=== PATIENT | male | born 1955 | race Caucasian/White ===

== ENCOUNTER 2019-10-04 12:41 | Emergency (ER) | payer OTHER ==
[~2019-10-04] VITALS: Ht 167.6 cm; Wt 69.4 kg
[2019-10-04] MEDS ORDERED: IV NORMAL SALINE 1,000ML 1,000 ML IV ONE (13:00)
[2019-10-04] MEDS ORDERED: ONDANSETRON PF 4 MG/2 ML VIAL. IV ONE (13:00)
[2019-10-04 13:19] LABS: BASO # 0.1 x10^3/uL (0.0-0.2); BASO % 1 % (0-3); EOS # 0.1 x10^3/uL (0.0-0.7); EOS % 1 % (0-3); HEMATOCRIT 45.5 % (39.0-53.0); HEMOGLOBIN 15.5 g/dL (13.0-17.5); LYMPH # 3.5 x10^3/uL (1.0-4.8); LYMPH % 32 % (24-48); MEAN CORPUSCULAR HEMOGLOBIN 31 pg (25-35); MEAN CORPUSCULAR HGB CONC 34 g/dL (31-37); MEAN CORPUSCULAR VOLUME 92 fL (79-100); MONO # 1.1 x10^3/uL (0.0-1.1); MONO % 10 % (0-9); NEUT # 6.1 x10^3uL (1.8-7.7); NEUT % 56 % (31-73); PLATELET COUNT 278 x10^3/uL (140-400); RED BLOOD COUNT 4.96 x10^6/uL (4.30-5.70); RED CELL DISTRIBUTION WIDTH 13.3 % (11.5-14.5); WHITE BLOOD COUNT 10.8 x10^3/uL (4.0-11.0)
[2019-10-04 13:43] LABS: ALBUMIN 3.5 g/dL (3.4-5.0); ALBUMIN/GLOBULIN RATIO 1.1 (1.0-1.7); CALCIUM 8.8 mg/dL (8.5-10.1); CREATININE 1.2 mg/dL (0.7-1.3); POTASSIUM 3.8 mmol/L (3.5-5.1); TOTAL BILIRUBIN 1.2 mg/dL (0.2-1.0); TOTAL PROTEIN 6.7 g/dL (6.4-8.2)
[2019-10-04] MEDS ORDERED: IOHEXOL 300 MG/ML 75 ML VIAL. IV ONE (14:00)
[2019-10-04] MEDS ORDERED: diphenhydrAMINE 50 MG/ML VIAL IVP ONE (14:00)
[2019-10-04] MEDS ORDERED: PROCHLORPERAZINE 10 MG/2 ML VIAL. IV ONE (14:00)
[2019-10-04] MEDS ORDERED: KETOROLAC 15 MG/ML VIAL. IVP ONE (14:00)
--- NOTE | 2019-10-04 14:27 | RAD ---
CT study of the abdomen and pelvis with contrast Clinical indications: Left lower quadrant abdominal pain. TECHNIQUE: After IV infusion of 75 cc of Omnipaque 300, helical CT scanning of the abdomen and pelvis was performed. No GI contrast was administered. This may decrease the sensitivity to detect GI tract pathology. PQRS compliance Statement One or more of the following individualized dose reduction techniques were utilized for this study: 1. Automated exposure control 2. Adjustment of the mA and/or kV according to patient size 3. Use of iterative reconstruction technique COMPARISON: None available. FINDINGS: There is a small cyst of the dome of the right lobe of the liver. Spleen is not enlarged. Pancreas and gallbladder are normal. No extra hepatic biliary ductal dilatation is seen. No adrenal mass is evident. Small nonobstructing stone of the lower pole of the right kidney is seen measuring 5 mm. Tiny punctate stone of the anterior mid aspect of the left kidney is seen. There is delayed opacification of the medullary spaces of the left kidney secondary to mild left-sided hydronephrosis. There is mild left-sided hydronephrosis and hydroureter secondary to a distal left ureteral stone measuring 5 mm in size located 1.5 cm proximal to the UVJ. There is mild left-sided perinephric inflammatory stranding. No focal aneurysmal dilatation of the abdominal aorta is seen. No enlarged abdominal or pelvic lymphadenopathy is evident. Urinary bladder is not distended. There is some hyperdensity within the lumen of urinary bladder which could represent blood. Prostate gland is mildly enlarged and indents the floor of the urinary bladder. The appendix is normal. No obstructive bowel pattern is evident. No diverticulitis is seen. No free air or free fluid or mesenteric edema is seen. No lung base consolidation is evident. No lytic process is seen. IMPRESSION: Mild left-sided hydronephrosis and hydroureter due to a distal left ureteral stone measuring 5 mm in size located 1.5 cm proximal to the UVJ. Bilateral renal stones. Mild enlargement of the prostate gland. Small amount of hyperdense blood is seen within the lumen of the urinary bladder. Electronically signed by: Mckinley Smith MD (10/04/2019 2:24 PM) [facility]
[2019-10-04 16:22] LABS: COLOR,URINE YELLOW
[2019-10-04 16:23] LABS: AMORPHOUS SEDIMENT,UR PRESENT /HPF; BACTERIA,URINE 0 /HPF (0-FEW); BILIRUBIN,URINE NEG (NEG); CLARITY,URINE CLEAR; GLUCOSE,URINE NEG (NEG); NITRITE,URINE NEG (NEG); SQUAMOUS EPITHELIAL CELL,UR OCC /LPF; UROBILINOGEN,URINE 0.2 mg/dL (0.2 mg/dL)
[2019-10-04] MEDS ORDERED: ONDA4TAB12 PO (16:35)
[2019-10-04] MEDS ORDERED: HYDR-3165 PO (16:35)
[2019-10-04 16:43] VITALS: BP 120/73
--- NOTE | 2019-10-04 16:43 | PHYS DOC ---
Past History Past Medical History: Prostatitis Past Surgical History: Other Additional Past Surgical Histo: Vasectomy Alcohol Use: None Drug Use: None Adult General Chief Complaint Chief Complaint: BACK PAIN OR INJURY HPI HPI Patient is a 64-year-old male who is presenting with chief complaint back pain onset about 2 days ago he was mildly got much worse over the last couple hours associated with suprapubic pressure unable to urinate for the last couple hours positive nausea no vomiting really no abdominal pain denies chest pain no fever symptoms are moderate slowly worsening with time denies previous medical history other than BPH for which he takes an alpha omar Review of Systems Review of Systems Constitutional: Denies fever or chills [] Eyes: Denies change in visual acuity, redness, or eye pain [] HENT: Denies nasal congestion or sore throat [] Respiratory: Denies cough or shortness of breath [] Musculoskeletal: Integument: Denies rash or skin lesions [] Neurologic: Denies headache, focal weakness or sensory changes [] Endocrine: Denies polyuria or polydipsia [] All other systems were reviewed and found to be within normal limits, except as documented in this note. Current Medications Current Medications Current Medications Medications (Trade) Dose Ordered Sig/Steve Start Time Stop Time Status Last Admin Dose Admin Diphenhydramine HCl (Benadryl) 25 mg 1X ONCE 10/04/19 14:00 10/04/19 14:01 DC 10/04/19 13:55 25 MG Fentanyl Citrate (Fentanyl 2ml Vial) 100 mcg STK-MED ONCE 10/04/19 13:01 10/04/19 13:01 DC Iohexol (Omnipaque 300 Mg/ml) 75 ml 1X ONCE 10/04/19 14:00 10/04/19 14:01 DC 10/04/19 14:07 75 ML Ketorolac Tromethamine (Toradol 15mg Vial) 15 mg 1X ONCE 10/04/19 14:00 10/04/19 14:01 DC 10/04/19 13:56 15 MG Ondansetron HCl (Zofran) 4 mg 1X ONCE 10/04/19 13:00 10/04/19 13:01 DC 10/04/19 13:00 4 MG Prochlorperazine Edisylate (Compazine) 10 mg 1X ONCE 10/04/19 14:00 10/04/19 14:01 DC 10/04/19 13:55 10 MG Sodium Chloride 1,000 ml @ 1,000 mls/hr 1X ONCE 10/04/19 13:00 10/04/19 13:59 DC 10/04/19 13:00 1,000 MLS/HR Allergies Allergies Allergies Coded Allergies Type Severity Reaction Last Updated Verified No Known Drug Allergies 10/04/19 No Physical Exam Physical Exam Constitutional: Well developed, well nourished, moderate distress appeared nauseous and was moving about the room HENT: Normocephalic, atraumatic, bilateral external ears normal, oropharynx mo ist, no oral exudates, nose normal. [] Eyes: PERRLA, EOMI, conjunctiva normal, no discharge. [] Neck: Normal range of motion, no tenderness, supple, no stridor. [] Cardiovascular:Heart rate regular rhythm, no murmur [] Lungs & Thorax: Bilateral breath sounds clear to auscultation [] Abdomen: Bowel sounds normal, soft, no tenderness, no masses, no pulsatile masses. [] Skin: Warm, dry, no erythema, no rash. [] Back: Positive CVA tenderness on the left Extremities: No tenderness, no cyanosis, no clubbing, ROM intact, no edema. [] Neurologic: Alert and oriented X 3, normal motor function, normal sensory function, no focal deficits noted. [] Psychologic: Affect normal, judgement normal, mood normal. [] Current Patient Data Vital Signs Vital Signs Date Time Temp Pulse Resp B/P (MAP) Pulse Ox O2 Delivery O2 Flow Rate FiO2 10/04/19 14:25 65 16 116/71 (86) 98 Room Air 10/04/19 12:51 98.1 Lab Results Laboratory Tests Test 10/04/19 13:03 10/04/19 15:39 White Blood Count 10.8 x10^3/uL (4.0-11.0) Red Blood Count 4.96 x10^6/uL (4.30-5.70) Hemoglobin 15.5 g/dL (13.0-17.5) Hematocrit 45.5 % (39.0-53.0) Mean Corpuscular Volume 92 fL (79-100) Mean Corpuscular Hemoglobin 31 pg (25-35) Mean Corpuscular Hemoglobin Concent 34 g/dL (31-37) Red Cell Distribution Width 13.3 % (11.5-14.5) Platelet Count 278 x10^3/uL (140-400) Neutrophils (%) (Auto) 56 % (31-73) Lymphocytes (%) (Auto) 32 % (24-48) Monocytes (%) (Auto) 10 % (0-9) H Eosinophils (%) (Auto) 1 % (0-3) Basophils (%) (Auto) 1 % (0-3) Neutrophils # (Auto) 6.1 x10^3uL (1.8-7.7) Lymphocytes # (Auto) 3.5 x10^3/uL (1.0-4.8) Monocytes # (Auto) 1.1 x10^3/uL (0.0-1.1) Eosinophils # (Auto) 0.1 x10^3/uL (0.0-0.7) Basophils # (Auto) 0.1 x10^3/uL (0.0-0.2) Sodium Level 141 mmol/L (136-145) Potassium Level 3.8 mmol/L (3.5-5.1) Chloride Level 104 mmol/L (98-107) Carbon Dioxide Level 24 mmol/L (21-32) Anion Gap 13 (6-14) Blood Urea Nitrogen 14 mg/dL (8-26) Creatinine 1.2 mg/dL (0.7-1.3) Estimated GFR (Cockcroft-Gault) 61.0 BUN/Creatinine Ratio 12 (6-20) Glucose Level 115 mg/dL (70-99) H Calcium Level 8.8 mg/dL (8.5-10.1) Total Bilirubin 1.2 mg/dL (0.2-1.0) H Aspartate Amino Transferase (AST) 25 U/L (15-37) Alanine Aminotransferase (ALT) 27 U/L (16-63) Alkaline Phosphatase 61 U/L (46-116) Troponin I Quantitative < 0.017 ng/mL (0-0.055) EV-Gdv-H-Type Natriuretic Peptide 84 pg/mL (0-124) Total Protein 6.7 g/dL (6.4-8.2) Albumin 3.5 g/dL (3.4-5.0) Albumin/Globulin Ratio 1.1 (1.0-1.7) Lipase 194 U/L (73-393) Urine Collection Type Unknown Urine Color Yellow Urine Clarity Clear Urine pH 5.5 Urine Specific [place] 1.010 Urine Protein Neg (NEG-TRACE) Urine Glucose (UA) Neg mg/dL (NEG) Urine Ketones (Stick) 40 mg/dL (NEG) Urine Blood Large (NEG) Urine Nitrite Neg (NEG) Urine Bilirubin Neg (NEG) Urine Urobilinogen Dipstick 0.2 mg/dL (0.2 mg/dL) Urine Leukocyte Esterase Neg (NEG) Urine RBC 11-20 /HPF (0-2) Urine WBC 1-4 /HPF (0-4) Urine Squamous Epithelial Cells Occ /LPF Urine Amorphous Sediment Present /HPF Urine Bacteria 0 /HPF (0-FEW) EKG EKG [] Radiology/Procedures Radiology/Procedures [] FINDINGS: There is a small cyst of the dome of the right lobe of the liver. Spleen is not enlarged. Pancreas and gallbladder are normal. No extra hepatic biliary ductal dilatation is seen. No adrenal mass is evident. Small nonobstructing stone of the lower pole of the right kidney is seen measuring 5 mm. Tiny punctate stone of the anterior mid aspect of the left kidney is seen. There is delayed opacification of the medullary spaces of the left kidney secondary to mild left-sided hydronephrosis. There is mild left-sided hydronephrosis and hydroureter secondary to a distal left ureteral stone measuring 5 mm in size located 1.5 cm proximal to the UVJ. There is mild left-sided perinephric inflammatory stranding. No focal aneurysmal dilatation of the abdominal aorta is seen. No enlarged abdominal or pelvic lymphadenopathy is evident. Urinary bladder is not distended. There is some hyperdensity within the lumen of urinary bladder which could represent blood. Prostate gland is mildly enlarged and indents the floor of the urinary bladder. The appendix is normal. No obstructive bowel pattern is evident. No diverticulitis is seen. No free air or free fluid or mesenteric edema is seen. No lung base consolidation is evident. No lytic process is seen. IMPRESSION: Mild left-sided hydronephrosis and hydroureter due to a distal left ureteral stone measuring 5 mm in size located 1.5 cm proximal to the UVJ. Bilateral renal stones. Mild enlargement of the prostate gland. Small amount of hyperdense blood is seen within the lumen of the urinary bladder. Electronically signed by: Mckinley Smith MD (10/04/2019 2:24 PM) [facility] Course & Med Decision Making Course & Med Decision Making Pertinent Labs and Imaging studies reviewed. (See chart for details) []64-year-old male presenting with chief complaint of flank pain found to have a kidney stone Pain was controlled after treatment in the emergency room he felt much better at 4:30 PM urinalysis was negative for infection no fever think he warrants outpatient therapy he was initially had some trouble urinating but after about an hour and a half he was able to urinate yellow urine without difficulty and felt much better discharge with pain medication and given strict return preca utions for fever refractory pain or vomiting or any other symptoms or concerns otherwise follow-up with urology on a routine basis for pain that does not improve as expected or for follow-up of kidney stone. Dragon Disclaimer Dragon Disclaimer This electronic medical record was generated, in whole or in part, using a voice recognition dictation system. Departure Departure: Impression: Primary Impression: Kidney stone Disposition: 01 HOME, SELF-CARE Condition: STABLE Patient Instructions: Kidney Stones, [id number] Scripts Ondansetron (ONDANSETRON ODT) 4 Mg Tab.rapdis 1 TAB PO PRN Q6-8HRS PRN for NAUSEA/VOMITING, #12 TAB Prov: JAISON WOO MD 10/04/19 Hydrocodone Bit/Acetaminophen (NORCO 5-325 TABLET) 1 Each Tablet 1-2 TAB PO Q4-6HRS PRN for PAIN, #15 TAB Prov: JAISON WOO MD 10/04/19 JAISON WOO MD Oct 04, 2019 16:43
--- NOTE | 2019-10-07 12:22 | EKG ---
[address] [address] Test Date: 2019-10-04 Test Time: 13:00:48 Pat Name: MILTON MEJIA Department: Room: Gender: M Chief Cardiopulmonary Technologist: : 1955 Requested By: JAISON WOO Order Number: [id number] Reading MD: Balbir Munguia MD Measurements Intervals [place] Rate: 62 P: 27 KS: 210 QRS: 24 QRSD: 80 T: 63 QT: 374 QTc: 382 Interpretive Statements SINUS RHYTHM Electronically Signed On 10-08-2019 13:51:49 [facility] [employer] by Balbir Munguia MD
== END 2019-10-04 16:40 | disposition home or self-care (01) ==
LOC: ER 12:41
DX: N13.2 Hydronephrosis with renal and ureteral calculous obstruction (principal)
CPT/HCPCS: 36415; 74177; 80053; 81001; 83690; 83880; 84484; 85025; 93005; 96374; 96375; 99285; J0780; J1200; J1885; J2405; J3010; Q9967; J7030

== ENCOUNTER → 2020-05-14 | Outpatient (CLI) | payer OTHER ==
[~2020-05-14] MED LIST: HYDR-3165 PO; ONDA4TAB12 PO
== END | disposition home or self-care (01) ==
LOC: LAB 09:59
PROVIDERS: ATTEND Urology
DX: N40.1 Benign prostatic hyperplasia with lower urinary tract symptoms (principal)
CPT/HCPCS: 84153; G0103

== ENCOUNTER 2021-09-10 23:08 | Emergency (ER) | payer MEDICARE, OTHER ==
[~2021-09-10] VITALS: Ht 167.6 cm; Wt 69.0 kg
--- NOTE | 2021-09-10 23:11 | PHYS DOC ---
Past History Past Medical History: Prostatitis Past Surgical History: Other Additional Past Surgical Histo: Vasectomy Alcohol Use: None Drug Use: None Adult General HPI HPI Patient is a 66-year-old male who presents with a chief complaint of nausea, vomiting and slip and fall. States he ate a really greasy pastrami sandwich earlier in the day, and started having some upset stomach a few hours ago and some nausea and vomiting right before coming to the emergency department. States he had some nonbilious nonbloody emesis, and when he went to stand up from the toilet, slipped and hit the top of his head on the side of the toilet. Denies any loss of consciousness, changes in vision, neck pain, pain or trouble swallowing, numbness/weakness/tingling, trouble sitting, standing or walking. States he is not up-to-date on his tetanus vaccinations. States he does have a laceration on the top of his head that bled for a little bit but has now stopped. States he want to make sure he did not need stitches. Review of Systems Review of Systems Review of systems otherwise unremarkable except noted in HPI Allergies Allergies Allergies Coded Allergies Type Severity Reaction Last Updated Verified No Known Drug Allergies 10/04/19 No Physical Exam Physical Exam Constitutional: Well developed, well nourished, no acute distress, non-toxic appearance. [] HENT: Has a 4 cm linear laceration across the frontal scalp just behind the hairline, bleeding controlled, bilateral external ears normal, oropharynx moist, no oral exudates, nose normal. [] Eyes: PERRLA, EOMI, conjunctiva normal, no discharge. [] Neck: Normal range of motion, no tenderness, supple, no stridor. [] Cardiovascular:Heart rate regular rhythm, no murmur [] Lungs & Thorax: Bilateral breath sounds clear to auscultation [] Abdomen: soft, no tenderness, no masses, no pulsatile masses. [] Skin: Warm, dry, no erythema, no rash. [] Back: No tenderness throughout the length of the spine, midline with no obvious deformities or step-offs Extremities: No tenderness, no cyanosis, no clubbing, ROM intact, no edema. [] Neurologic: Alert and oriented X 3, normal motor function, normal sensory function, no focal deficits noted, able to sit, stand and walk without issue. [] Psychologic: Affect normal, judgement normal, mood normal. [] EKG EKG [] Radiology/Procedures Radiology/Procedures Laceration on scalp cleaned extensively with sterile water. LET placed for topical anesthesia. Wound cleaned again with sterile water. 8 yasir placed without complication. Patient tolerated well. Heart Score C/O Chest Pain: No Risk Factors: Risk Factors: DM, Current or recent (<one month) smoker, HTN, HLP, family history of CAD, obesity. Risk Scores: Risk Factors: DM, Current or recent (<one month) smoker, HTN, HLP, family history of CAD, obesity. Course & Med Decision Making Course & Med Decision Making Patient is a 66-year-old male who presents with a chief complaint of nausea, vomiting and head laceration Vital signs not concerning. Physical exam noted above. Updated tetanus. Lidocaine placed for topical anesthesia. Given pain medicine. Given nausea medicine. CT of the head with no acute osseous abnormalities or internal bleeds. Replaced with yasir after washing out wound. Given wound care instructions. Advised to follow-up with primary care physician on Monday to set up a follow-up in 7 to 10 days for staple removal and wound check. Gave return precautions to the ED. Patient grateful, verbalized understanding and agreed with plan of discharge. [] Dragon Disclaimer Dragon Disclaimer This electronic medical record was generated, in whole or in part, using a voice recognition dictation system. Departure Departure: Impression: Primary Impression: Nausea & vomiting Additional Impression: Laceration of head Disposition: HOME / SELF CARE / HOMELESS Condition: GOOD Referrals: DELISA CAN MD (PCP) Patient Instructions: Laceration Care, Adult, Nausea and Vomiting Additional Instructions: Thank you for coming into the emergency department tonight and allowing us to take care of you. Please read the attached information carefully to go back over things we discussed. Problem Qualifiers SARAN MUKHERJEE MD Sep 10, 2021 23:11
[2021-09-10 23:14] VITALS: BP 114/64
[2021-09-10] MEDS ORDERED: ACETAMINOPHEN 500 MG TABLET PO ONE (23:30)
[2021-09-10] MEDS ORDERED: LIDOCAINE/EPI/TETRACAINE TOPICAL GEL 3 ML. TP ONE (23:30)
[2021-09-10] MEDS ORDERED: ONDANSETRON ODT 4 MG TAB.RAPDIS PO ONE (23:30)
--- NOTE | 2021-09-10 23:48 | RAD ---
Exam: CT head INDICATION: Fall, laceration TECHNIQUE: Sequential axial images through the head were obtained without the administration of IV co ntrast. Exposure: One or more of the following in the visualized dose reduction techniques were utilized for this examination: 1. Automated exposure control 2. Adjustment of the MA and/or KV according to patient size 3. Use of iterative of reconstructive technique Comparisons: None FINDINGS: No focal parenchymal lesion or hemorrhage is identified. There is no midline shift or sulcal effaceme nt. No acute vascular territory infarction is identified. Paiz-white distinction is preserved. The ventricular system is within normal limits without compression hydrocephalus. The basal cisterns are well maintained. The visualized portions of the paranasal sinuses and mastoid air cells are well-pneumatized. No acute fractures. IMPRESSION: No acute intracranial abnormality. Electronically signed by: Tanja Hassan MD (09/10/2021 11:45 PM) [facility]
[2021-09-11] MEDS ORDERED: DIPH,PERTUSS(ACELL),TET VAC/PF 0.5 ML SYRINGE. VAX IM ONE (00:15)
== END 2021-09-11 00:12 | disposition home or self-care (01) ==
LOC: ER 23:08
DX: S01.01XA Laceration without foreign body of scalp, initial encounter (principal); R11.2 Nausea with vomiting, unspecified; K30 Functional dyspepsia; W18.49XA Other slipping, tripping and stumbling without falling, initial encounter; Y93.89 Activity, other specified; Y92.89 Other specified places as the place of occurrence of the external cause; Y99.8 Other external cause status
CPT/HCPCS: 12002; 70450; 90471; 90715; 96372; 99284; J3010; Q0162

== ENCOUNTER 2021-09-21 10:20 | Emergency (ER) | payer MEDICARE, OTHER ==
[~2021-09-21] VITALS: Ht 167.6 cm; Wt 69.0 kg
[2021-09-21 10:27] VITALS: BP 129/65
--- NOTE | 2021-09-21 10:38 | PHYS DOC ---
Past History Past Medical History: Kidney Stones, Prostatitis Additional Past Medical Histor: Prostatitis Past Surgical History: Other Additional Past Surgical Histo: Vasectomy Smoking: Non-smoker Alcohol Use: None Drug Use: None General Adult EDM: Chief Complaint: SUTURE/STAPLE REMOVAL HPI: HPI: 66 year old male presents for staple removal x8 to scalp. Patient reports staple placement on 09/10/21 after he "passed out "and hit his head, receiving a laceration on his left frontoparietal region. He denies any fever, chills, or other signs of infection. Patient reports ready to have his yasir removed. WHMSOFT review obtained with notation that patient did receive tetanus booster and CT imaging on 09/10/21 in emergency department. Review of Systems: Review of Systems: Constitutional: Denies fever or chills Eyes: Denies redness or eye pain HENT: Denies nasal congestion or sore throat Respiratory: Denies cough or shortness of breath Cardiovascular: Denies chest pain or palpitations GI: Denies abdominal pain, nausea, or vomiting : Denies dysuria or hematuria Musculoskeletal: Reports age-related back pain and joint pain Integument: Denies rash; reports scalp laceration repaired with yasir Neurologic: Denies headache, focal weakness or sensory changes Complete systems were reviewed and found to be within normal limits, except as documented in this note. Allergies: Allergies: Allergies Coded Allergies Type Severity Reaction Last Updated Verified No Known Drug Allergies 10/04/19 No Physical Exam: PE: Constitutional: Well developed, well nourished, no acute distress, non-toxic appearance HENT: Normocephalic. About a 3 cm well-healing laceration in left frontoparietal region with [address] Eyes: Conjunctiva normal, no discharge Neck: Normal range of motion, no tenderness, supple Lungs & Thorax: No respiratory distress, equal chest rise and fall Skin: Warm, dry, no erythema, no rash Neurologic: Alert and oriented X 3, no motor deficits, no sensory deficits, no focal deficits noted Psychologic: Affect normal, judgment normal Current Patient Data: Vital Signs: Vital Signs Date Time Temp Pulse Resp B/P (MAP) Pulse Ox O2 Delivery O2 Flow Rate FiO2 09/21/21 10:27 98.4 80 16 129/65 (86) 97 Room Air EKG: EKG: [] Radiology/Procedures: Radiology/Procedures: [] Heart Score: C/O Chest Pain: N/A Course & Med Decision Making: Course & Med Decision Making 66 yo male presents for staple removal x8. Appears well healing. Yasir removed with no signs of infection or dehiscence Patient stable for discharge with outpatient follow-up with PCP. Discussed findings and plan with patient, who acknowledges understanding and agreement. Dragon Disclaimer: Dragon Disclaimer: This electronic medical record was generated, in whole or in part, using a voice recognition dictation system. Additional Procedures Progress Staple removal Verbal consent obtained. Time out performed. Hand hygiene utilized. Yasir x8 successfully removed from left frontoparietal region. Patient tolerated procedure well and without difficulty. Departure Departure: Impression: Primary Impression: Encounter for staple removal Disposition: HOME / SELF CARE / HOMELESS Condition: STABLE Referrals: DEILSA CAN MD (PCP) Patient Instructions: Staple Removal, Care After Additional Instructions: You may use over the counter antibiotic ointment to wound for the next few days. RALPH MG DO Sep 21, 2021 10:38
== END 2021-09-21 10:43 | disposition home or self-care (01) ==
LOC: ER 10:20
DX: S01.01XD Laceration without foreign body of scalp, subsequent encounter (principal); Z87.442 Personal history of urinary calculi; X58.XXXD Exposure to other specified factors, subsequent encounter
CPT/HCPCS: 99281